=== PATIENT | male | born 1980 | race Caucasian/White ===

== ENCOUNTER 2017-06-08 08:44 | Emergency (ER) | payer OTHER ==
[2017-06-08 08:57] VITALS: BP 136/83
[2017-06-08] MEDS ORDERED: Sodium Chloride 0.9% 10 ML Syringe FLUSH PRN (09:30)
--- NOTE | 2017-06-08 10:00 | EDM.PDOC ---
<Teresita Michaud - Last Filed: 06/08/17 10:22> ED HPI GENERAL MEDICAL PROBLEM - General Chief Complaint: Chest Pain Stated Complaint: CHEST PAIN/SOB Time Seen by Provider: 06/08/17 09:01 Source of Information: Reports: Patient, Family History Limitations: Reports: No Limitations - History of Present Illness INITIAL COMMENTS - FREE TEXT/NARRATIVE: Patient is a 36 YO male who presents today for chest tightness and shortness or breath. He states the chest pain started last night around 7 pm while helping his kids with homework. He describes it as a heavy feeling in the right chest with associated labored breathing and lightheadedness. He was able to sleep last night without pain. When he woke up this morning he had continued discomfort so he decided to present this morning. He states he has had similar symptoms for the past couple years but seems to be more frequent over the past several weeks. He has not correlated with pain with any activity and just comes on randomly. The pain is worse with inspiration. Nothing makes the pain better. He takes Advil when the pain gets worse but this does not improve the pain. 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 He does little physical activity. He has been experiencing some lightheadedness and blurred vision upon standing which has also been occurring more frequently. He denies GERD. Denies smoking or history of asthma. Patient reports that he does have baseline anxiety. Chest Pain Score (Numeric/FACES): 3 - Related Data Allergies Allergy/AdvReac Type Severity Reaction Status Date / Time No Known Allergies Allergy Verified 06/08/17 08:51 Home Meds: Home Meds . [No Known Home Meds] 06/08/17 [History] Past Medical History HEENT History: Reports: Impaired Vision Other HEENT History: used to wear eyeglasses prior to LASIK surgery. Cardiovascular History: Reports: High Cholesterol Other Cardiovascular History: was started on med for cholesterol, quit taking when Rx ran out. 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 Fx neck with fusion to C6-C7. Social & Family History - Family History Family Medical History: Noncontributory - Tobacco Use Smoking Status *Q: Never Smoker Second Hand Smoke Exposure: No - Caffeine Use Caffeine Use: Reports: Energy Drinks - Recreational Drug Use Recreational Drug Use: No ED ROS GENERAL - Review of Systems Review Of Systems: See Below Constitutional: Reports: No Symptoms Respiratory: Reports: Shortness of Breath, Pleuritic Chest Pain. Denies: Wheezing, Cough, Hemoptysis Cardiovascular: Reports: Chest Pain, Lightheadedness. Denies: Dyspnea on Exertion, Palpitations, Syncope GI/Abdominal: Reports: No Symptoms : Reports: No Symptoms Musculoskeletal: Reports: No Symptoms Skin: Reports: No Symptoms Neurological: Reports: No Symptoms Psychiatric: Reports: Anxiety ED EXAM, GENERAL - Physical Exam Exam: See Below Exam Limited By: No Limitations General Appearance: Alert, WD/WN, No Apparent Distress Eye Exam: Bilateral Eye: EOMI, PERRL Head: Atraumatic Respiratory/Chest: No Respiratory Distress, Lungs Clear, Normal Breath Sounds, Chest Non-Tender Cardiovascular: Normal Peripheral Pulses, Regular Rate, Rhythm, No Edema, No Murmur GI/Abdominal: Normal Bowel Sounds, Soft, Non-Tender, No Organomegaly, No Distention Extremities: No: Adriana's Sign, Leg Pain, Redness Neurological: Alert, Oriented, CN II-XII Intact, Normal Cognition, Normal Gait, No Motor/Sensory Deficits Psychiatric: Normal Affect, Normal Mood Skin Exam: Warm, Dry, Intact, Normal Color, No Rash Course - Vital Signs Last Recorded V/S: Last Vital Signs Temp 98.3 F 06/08/17 08:45 Pulse 78 06/08/17 08:45 Resp 14 06/08/17 08:45 BP 136/83 06/08/17 08:45 Pulse Ox Orthostatic Blood Pressure [ 126/92 Standing] Orthostatic Blood Pressure [ 137/80 Sitting] Orthostatic Blood Pressure [ 115/70 Supine] - Orders/Labs/Meds Orders: Active Orders 24 hr Category Date Time Status EKG 12 Lead [EKG Documentation Completion] [RC] STAT Care 06/08/17 09:29 Active Orthostatic Vital Signs [RC] ASDIRECTED Care 06/08/17 09:31 Active Peripheral IV Care [RC] . DIRECTED Care 06/08/17 09:30 Active Peripheral IV Insertion Adult [OM.PC] Stat Oth 06/08/17 09:30 Ordered Labs: Laboratory Tests 06/08/17 06/08/17 06/08/17 Range/Units 09:10 09:10 09:10 WBC 4.64 (4.23-9.07) K/mm3 RBC 4.98 (4.63-6.08) M/mm3 Hgb 16.1 (13.7-17.5) gm/L Hct 46.3 (40.1-51.0) % MCV 93.0 H (79.0-92.2) fl MCH 32.3 H (25.7-32.2) pg MCHC 34.8 (32.2-35.5) g/dl RDW Std Deviation 39.8 (35.1-43.9) fL Plt Count 218 (163-337) K/mm3 MPV 8.5 L (9.4-12.3) fl Neut % (Auto) 49.3 (34.0-67.9) % Lymph % (Auto) 35.8 (21.8-53.1) % Blaine % (Auto) 13.4 H (5.3-12.2) % Eos % (Auto) 1.1 (0.8-7.0) Baso % (Auto) 0.4 (0.1-1.2) % Neut # (Auto) 2.29 (1.78-5.38) K/mm3 Lymph # (Auto) 1.66 (1.32-3.57) K/mm3 Blaine # (Auto) 0.62 (0.30-0.82) K/mm3 Eos # (Auto) 0.05 (0.04-0.54) K/mm3 Baso # (Auto) 0.02 (0.01-0.08) K/mm3 D-Dimer, Quantitative 0.28 (0.19-0.50) mg/L Sodium 139 (136-145) mEq/L Potassium 4.1 (3.5-5.1) mEq/L Chloride 103 (98-107) mEq/L Carbon Dioxide 26 (21-32) mEq/L Anion Gap 14.1 (5-15) BUN 22 H (7-18) mg/dL Creatinine 1.0 (0.7-1.3) mg/dL Est Cr Clr Drug Dosing 114.30 mL/min Estimated GFR (MDRD) > 60 (>60) mL/min BUN/Creatinine Ratio 22.0 H (14-18) Glucose 101 (74-106) mg/dL Calcium 9.7 (8.5-10.1) mg/dL Total Bilirubin 0.3 (0.2-1.0) mg/dL AST 17 (15-37) U/L ALT 25 (16-63) U/L Alkaline Phosphatase 68 (46-116) U/L Troponin I < 0.017 (0.00-0.056) ng/mL Total Protein 7.5 (6.4-8.2) g/dl Albumin 4.1 (3.4-5.0) g/dl Globulin 3.4 gm/dL Albumin/Globulin Ratio 1.2 (1-2) Meds: Medications Discontinued Medications Generic Name Dose Route Start Last Admin Trade Name Freq PRN Reason Stop Dose Admin Sodium Chloride 10 ml 06/08/17 09:30 06/08/17 09:10 Saline Flush FLUSH 10 ml ASDIRECTED PRN Administration Keep Vein Open Departure - Departure Disposition: Home, Self-Care 01 Clinical Impression: Atypical chest pain - Discharge Information Instructions: Nonspecific Chest Pain, [id number] Referrals: Meagan Louis PA-C [Primary Care Provider] - Forms: ED Department Discharge Additional Instructions: Order has been provided for cardiac echocardiogram, if not scheduled at time of your discharge today Radiology will call you to set up a time for that, continue with your diet plan, try get started with a more regular exercise program, follow-up with Meagan at the clinic in about a week for recheck, return to ED as needed if symptoms worsening in any way. - My Orders Last 24 Hours: My Active Orders 06/08/17 09:29 EKG 12 Lead [EKG Documentation Completion] [RC] STAT 06/08/17 09:30 Peripheral IV Care [RC] . DIRECTED Peripheral IV Insertion Adult [OM.PC] Stat - Assessment/Plan Last 24 Hours: My Active Orders 06/08/17 09:29 EKG 12 Lead [EKG Documentation Completion] [RC] STAT 06/08/17 09:30 Peripheral IV Care [RC] . DIRECTED Peripheral IV Insertion Adult [OM.PC] Stat <Lobo,Be L - Last Filed: 06/08/17 15:40> Course - Re-Assessments/Exams Free Text/Narrative Re-Assessment/Exam: 06/08/17 11:23 Patient initially seen by all MARIBELL Santiago student. I agree with her history and exam as documented. I have also visited with patient and done an exam on patient. Labs chest x-ray EKG all did come back relatively normal. Troponin and d-dimer were both negative. Asked x-ray did not show acute findings. O2 sats were noted to be somewhat lower than expected running in the 92-93 range. He does not feel any more short of breath than usual. He states he has lost 85 pounds and actually is less short of breath than he had been when he was more overweight. I am going to order cardiac echocardiogram just to get a better look at his heart and valvular function. Discharge instructions as documented. Departure - Departure Time of Disposition: 11:19 Condition: Fair
--- NOTE | 2017-06-08 10:40 | CR ---
Chest: Frontal view of the chest was obtained. Comparison: Prior chest x-ray of 02/27/12. Heart size and mediastinum are normal. Stable granuloma within the right lung base is seen. Lungs otherwise are clear with no acute parenchymal change. Bony structures are grossly intact. Impression: 1. Incidental finding. Nothing acute is seen on frontal chest x-ray. Diagnostic code #2
== END 2017-06-08 11:34 | disposition home or self-care (01) ==
LOC: SUPCPDRO 08:44 → JD.ED 08:44
DX: R07.89 Other chest pain (principal)
CPT/HCPCS: 36415; 71045; 80053; 84484; 85025; 85379; 93005; 99285; J7050; 93010; 99284-25

== ENCOUNTER 2020-07-18 21:46 | Emergency (ER) | payer OTHER ==
--- NOTE | 2020-07-18 22:09 | EDM.PDOC ---
ED HPI GENERAL MEDICAL PROBLEM - General Chief Complaint: Gastrointestinal Problem Stated Complaint: DIARRHEA 5 DAYS Time Seen by Provider: 07/18/20 22:07 - History of Present Illness INITIAL COMMENTS - FREE TEXT/NARRATIVE: 39-year-old male presents the emergency room with diarrhea. Patient states his diarrhea has been going on for over 5 days he has multiple loose stools daily approximately 2 an hour they are usually yellow in color occasionally bloody and he has developed these lumps in his rectum and it feels like his rectum is twisting inside and out when he has bowel movements according to the patient. Patient denies any fevers or chills no nausea or vomiting. The blood is not a constant thing it is an intermittent thing and not with the majority of the bowel movements. Patient has not had problems like this in the past and he denies any other past medical problems. Lower Abdomen Pain Score (Numeric/FACES): 3 - Related Data Allergies Allergy/AdvReac Type Severity Reaction Status Date / Time No Known Allergies Allergy Verified 07/18/20 22:05 Home Meds: Home Meds Loperamide HCl [Loperamide] 2 mg PO ASDIRECTED #14 capsule 07/19/20 [Rx] Past Medical History HEENT History: Reports: Impaired Vision Other HEENT History: used to wear eyeglasses prior to LASIK surgery. Cardiovascular History: Reports: High Cholesterol Other Cardiovascular History: was started on med for cholesterol, quit taking when Rx ran out. 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 Fx neck with fusion to C6-C7. Social & Family History - Family History Family Medical History: No Pertinent Family History - Caffeine Use Caffeine Use: Reports: Energy Drinks ED ROS GENERAL - Review of Systems Review Of Systems: See Below Constitutional: Reports: No Symptoms HEENT: Reports: No Symptoms Respiratory: Reports: No Symptoms Cardiovascular: Reports: No Symptoms GI/Abdominal: Reports: Abdominal Pain, Bloody Stool, Diarrhea. Denies: Constipation, Nausea, Vomiting : Reports: No Symptoms Musculoskeletal: Reports: No Symptoms Skin: Reports: No Symptoms Neurological: Reports: No Symptoms ED EXAM, GENERAL - Physical Exam Exam: See Below Exam Limited By: No Limitations General Appearance: Alert, No Apparent Distress Head: Atraumatic, Normocephalic Neck: Normal Inspection, Supple, Non-Tender, Full Range of Motion. No: Carotid Bruit, Lymphadenopathy (L) Respiratory/Chest: No Respiratory Distress, Lungs Clear Cardiovascular: Regular Rate, Rhythm, No Edema, No Murmur GI/Abdominal: Normal Bowel Sounds, Soft, Non-Tender, Other (Obese). No: Guarding, Rigid, Rebound Rectal (Males) Exam: Heme - Stool, Other (Rectal exam limited by severe pain no blood seen no hemorrhoids seen I suspect he has some internal hemorrhoids but cannot quite reach them) Neurological: Alert, Oriented, Normal Cognition Course - Vital Signs Last Recorded V/S: Last Vital Signs Temp 36.1 C 07/18/20 22:01 Pulse 88 07/19/20 01:00 Resp 16 07/19/20 01:00 BP 144/90 H 07/19/20 01:00 Pulse Ox 95 07/19/20 01:00 - Orders/Labs/Meds Orders: Active Orders 24 hr Category Date Time Status STOOL CULTURE/SHIGA TOXIN [MREF] Stat Lab 07/18/20 23:45 Received Labs: Laboratory Tests 07/18/20 07/18/20 07/18/20 Range/Units 22:36 22:36 22:49 WBC 7.07 (4.23-9.07) K/mm3 RBC 4.82 (4.63-6.08) M/mm3 Hgb 15.9 (13.7-17.5) gm/dl Hct 46.0 (40.1-51.0) % MCV 95.4 H (79.0-92.2) fl MCH 33.0 H (25.7-32.2) pg MCHC 34.6 (32.2-35.5) g/dl RDW Std Deviation 41.0 (35.1-43.9) fL Plt Count 219 (163-337) K/mm3 MPV 8.3 L (9.4-12.3) fl Neut % (Auto) 53.8 (34.0-67.9) % Lymph % (Auto) 26.0 (21.8-53.1) % Cotton % (Auto) 15.1 H (5.3-12.2) % Eos % (Auto) 4.4 (0.8-7.0) Baso % (Auto) 0.6 (0.1-1.2) % Neut # (Auto) 3.80 (1.78-5.38) K/mm3 Lymph # (Auto) 1.84 (1.32-3.57) K/mm3 Cotton # (Auto) 1.07 H (0.30-0.82) K/mm3 Eos # (Auto) 0.31 (0.04-0.54) K/mm3 Baso # (Auto) 0.04 (0.01-0.08) K/mm3 Manual Slide Review Sodium 139 (136-145) mEq/L Potassium 3.7 (3.5-5.1) mEq/L Chloride 102 (98-107) mEq/L Carbon Dioxide 27 (21-32) mEq/L Anion Gap 13.7 (5-15) BUN 14 (7-18) mg/dL Creatinine 1.4 H (0.7-1.3) mg/dL Est Cr Clr Drug Dosing 79.27 mL/min Estimated GFR (MDRD) 56 (>60) mL/min BUN/Creatinine Ratio 10.0 L (14-18) Glucose 107 H (70-99) mg/dL Calcium 8.8 (8.5-10.1) mg/dL Total Bilirubin 0.4 (0.2-1.0) mg/dL AST 21 (15-37) U/L ALT 50 (16-63) U/L Alkaline Phosphatase 70 (46-116) U/L Total Protein 7.0 (6.4-8.2) g/dl Albumin 3.6 (3.4-5.0) g/dl Globulin 3.4 gm/dL Albumin/Globulin Ratio 1.1 (1-2) Urine Color Yellow (Yellow) Urine Appearance Clear (Clear) Urine pH 6.0 (5.0-8.0) Ur Specific [place] > or = 1.030 (1.005-1.030) Urine Protein 2+ H (Negative) Urine Glucose (UA) Negative (Negative) Urine Ketones Negative (Negative) Urine Occult Blood Negative (Negative) Urine Nitrite Negative (Negative) Urine Bilirubin Negative (Negative) Urine Urobilinogen 0.2 (0.2-1.0) Ur Leukocyte Esterase Negative (Negative) Urine RBC 0-5 (0-5) /hpf Urine WBC 0-5 (0-5) /hpf Ur Squamous Epith Cells 0-5 (0-5) /hpf Urine Bacteria Few (FEW) /hpf Urine Mucus Many H (FEW) /hpf Meds: Medications Discontinued Medications Generic Name Dose Route Start Last Admin Trade Name Subhash PRN Reason Stop Dose Admin Lactated Ringer's 1,000 mls @ 999 mls/hr 07/18/20 22:19 07/18/20 22:36 Ringers, Lactated IV 07/18/20 23:19 999 mls/hr .BOLUS ONE Administration Loperamide HCl 4 mg 07/19/20 00:44 07/19/20 01:04 Loperamide 2 Mg Cap PO 07/19/20 00:45 4 mg ONETIME ONE Administration - Re-Assessments/Exams Free Text/Narrative Re-Assessment/Exam: 07/19/20 00:46 Labs reviewed he does not have level elevated white count chemistries concerning for creatinine of 1.4 which is little high for his age but he does not appear to be prerenal. Stool studies have been obtained. We will start loperamide for symptomatic control await stool cultures. I have explained this to the patient and he seems to voiced understanding he will follow-up in the clinic early this next week. Departure - Departure Time of Disposition: 00:47 Disposition: Home, Self-Care 01 Clinical Impression: Diarrhea - Discharge Information Prescriptions: Loperamide HCl [Loperamide] 2 mg PO ASDIRECTED #14 capsule Instructions: Diarrhea, Adult, [id number] Referrals: PCP,None [Primary Care Provider] - Forms: ED Department Discharge Additional Instructions: Return to the emergency room with any questions problems or worsening symptoms. Push lots of fluids so you are voiding every hour and 1/2 to 2 hours during the day. You were sent home with 2 pills take them after your next loose stool and then repeat 1 pill after each loose stool up to a total of 8 pills daily for no more than 2 days. Call the hospital clinic tomorrow [phone] to schedule a follow-up appointment for your diarrhea and general health issues on Wednesday or Wednesday. Sepsis Event Note (ED) - Evaluation Sepsis Screening Result: No Definite Risk - Focused Exam Vital Signs: Vital Signs Temp Pulse Resp BP Pulse Ox 07/19/20 01:00 88 16 144/90 H 95 07/18/20 22:01 36.1 C 95 20 160/107 H 92 L - My Orders Last 24 Hours: My Active Orders 07/18/20 23:45 STOOL CULTURE/SHIGA TOXIN [MREF] Stat - Assessment/Plan Last 24 Hours: My Active Orders 07/18/20 23:45 STOOL CULTURE/SHIGA TOXIN [MREF] Stat
[2020-07-18] MEDS ORDERED: Lactated Ringers 1,000 ML IV ONE (22:19)
[2020-07-19] MEDS ORDERED: Loperamide 2 MG Cap PO ONE (00:44)
[2020-07-19 01:08] VITALS: BP 144/90; PULSE 88
== END 2020-07-19 01:07 | disposition home or self-care (01) ==
LOC: JD.ED 21:46
DX: R19.7 Diarrhea, unspecified (principal)
CPT/HCPCS: 36415; 80053; 81001; 85025; 87045; 87046; 87899; 99284; A9270; J7120; 99283